=== PATIENT | female | born 1990 | race Hispanic/Latino ===

== ENCOUNTER 2017-04-18 12:41 | Emergency (ER) | payer BC ==
[2017-04-18 12:47] VITALS: BMI 22.3
[2017-04-18 12:48] VITALS: BP 119/80; PULSE 75; TEMP 98.1
[2017-04-18] MEDS ORDERED: Lidocaine 2% Inj (20ml) INFIL ONE (13:28)
[2017-04-18] MEDS ORDERED: Lidocaine 2% Inj (20ml) ONE (13:31)
[2017-04-18] MEDS ORDERED: Bacitracin 500 Units/gm Oint Foilpak UD TOP ONE (13:43)
[2017-04-18] MEDS ORDERED: Bacitracin 500 Units/gm Oint Foilpak UD ONE (13:45)
--- NOTE | 2017-04-18 14:07 | C.PDOC ---
History Of Present Illness Pt states she her laptop computer fell on her right foot last night. Time Seen by Provider: 04/18/17 12:52 Chief Complaint (Nursing): Lower Extremity Problem/Injury History Per: Patient Onset/Duration Of Symptoms: Days (1) Current Symptoms Are (Timing): Still Present Severity: Moderate Additional History Per: Prior Records - Ankle/Foot Description Of Injury: Struck With Object Feet: 1 - pain/swelling Past Medical History Reviewed: Historical Data, Nursing Documentation, Vital Signs Vital Signs: Last Vital Signs Temp 98.1 F 04/18/17 12:45 Pulse 75 04/18/17 12:45 Resp 20 04/18/17 12:45 BP 119/80 04/18/17 12:45 Pulse Ox 99 04/18/17 14:12 - Medical History PMH: Asthma Surgical History: Tonsillectomy Family History: States: Unknown Family Hx - Social History Hx Tobacco Use: No Hx Alcohol Use: No Hx Substance Use: No - Immunization History Hx Tetanus Toxoid Vaccination: No Hx Influenza Vaccination: No Hx Pneumococcal Vaccination: No Review Of Systems Except As Marked, All Systems Reviewed And Found Negative. Constitutional: Negative for: Fever, Weakness Cardiovascular: Negative for: Chest Pain Respiratory: Negative for: Shortness of Breath Gastrointestinal: Negative for: Vomiting, Abdominal Pain Musculoskeletal: Positive for: Foot Pain (right great toe). Negative for: Neck Pain, Leg Pain Skin: Positive for: Bruising Neurological: Negative for: Weakness, Numbness Physical Exam - Physical Exam Appears: Non-toxic, No Acute Distress Skin: Warm, Dry Head: Atraumatic, Normacephalic Eye(s): bilateral: Normal Inspection, PERRL, EOMI Neck: Normal ROM, Supple Extremity: Normal ROM, Tenderness (right great toe), No Pedal Edema, No Calf Tenderness, Other (small subungal hematoma of right great toe) Pulses: Right Dorsalis Pedis: Normal Neurological/Psych: Oriented x3, Normal Motor, Normal Sensation ED Course And Treatment O2 Sat by Pulse Oximetry: 99 Pulse Ox Interpretation: Normal - Other Rad Right great toe x-rays X-Ray: Interpreted by Me, Viewed By Me Interpretation: No acute fx or dislocation. Progress Note: Bacitracin and dressing applied by RN. Reassessment Condition: Improved Disposition Counseled Patient/Family Regarding: Studies Performed, Diagnosis, Need For Followup - Disposition Referrals: Podiatry Clinic [Outside] Disposition: HOME/ ROUTINE Disposition Time: 14:14 Condition: IMPROVED Additional Instructions: Follow up with your primary doctor and with a Residential Coordinator (Foot doctor). Return to the ER if you develop fever, redness, swelling, pus drainage, worsening of symptoms or if you have any other concerns. Instructions: Subungual Hematoma (ED) - Clinical Impression Clinical Impression: Subungual hematoma of great toe of right foot, Contusion of great toe, right Procedures - Nail Trephination Consent Obtained: Verbal Consent Time Out: No Location (Toes): Right, First Digit Sterile Prep: Betadine Method of Drainage: Needle (after digital block using 2% Lidocaine.) Procdure Successful: Yes Patient Tolerated Procedure: Well, No Complications
[2017-04-18 14:22] VITALS: RESP 18; O2SAT 100
--- NOTE | 2017-04-18 15:35 | RAD ---
PROCEDURE: Radiographs of the right great toe. COMPARISON: None available. FINDINGS: BONES: No acute displaced fracture identified. JOINTS: No dislocation. SOFT TISSUES: Soft tissue swelling. No evidence of radiopaque foreign body. OTHER FINDINGS: None. IMPRESSION: Soft tissue swelling. No acute displaced fracture or dislocation identified. If symptoms persist or if there is continued clinical concern, x-ray follow-up in 7-10 days should be considered.
== END 2017-04-18 14:21 | disposition home or self-care (01) ==
LOC: C.ER 12:41
DX: S90.211A Contusion of right great toe with damage to nail, initial encounter (principal); W22.8XXA Striking against or struck by other objects, initial encounter; Y93.89 Activity, other specified; Y92.9 Unspecified place or not applicable